=== PATIENT | male | born 1940 | race Caucasian/White ===

== ENCOUNTER 2017-01-10 06:59 | Day surgery (SDC) | payer MEDICARE, OTHER ==
[~2017-01-10] VITALS: Ht 165.1 cm; Wt 95.5 kg
[~2017-01-10 06:59] MED LIST: ALLO100T PO; ASPI-891 PO; BENZ200C2 PO; CARB200T6 PO; CEFT1PIG IV; FENO160T16 PO; FINA1 PO; HYDR25TA PO; METF10002 PO; METO25 PO; OLME40 PO; OMEP40CA PO; SODIUM CHLORIDE 0.9% 1,000 ML IV ONE; SODIUM CHLORIDE 0.9% 1,000 ML IV SCH; TERA2 PO; VARD10TA20 PO; ZOLP5 PO
[2017-01-10] MEDS ORDERED: DiphenhydrAMINE HCL 50 MG/ML VIAL IVP PRN (07:00)
[2017-01-10] MEDS ORDERED: ASPI81TA42 PO (07:42)
[2017-01-10] MEDS ORDERED: ASPI-1182 PO (07:42)
[2017-01-10] MEDS ORDERED: CLON-465 PO (07:48)
[2017-01-10] MEDS ORDERED: CARB100C4 PO (07:48)
[2017-01-10] MEDS ORDERED: FENO135C4 PO (07:50)
[2017-01-10] MEDS ORDERED: METF500T4 PO (07:51)
[2017-01-10] MEDS ORDERED: METO50 PO (07:52)
[2017-01-10 07:55] LABS: BASOPHILS # (AUTO) 0.04 K/uL (0.00-0.20); BASOPHILS % (AUTO) 0.6 % (0.0-2.0); EOSINOPHILS # (AUTO) 0.15 K/uL (0.00-0.70); EOSINOPHILS % (AUTO) 2.12 % (1.0-6.0); HEMATOCRIT 48.5 % (41-53); LYMPHOCYTES # (AUTO) 1.3 K/uL (1.0-4.8); LYMPHOCYTES % (AUTO) 17.2 % (22.0-44.0); MEAN CORPUSCULAR HEMOGLOBIN 29.9 pg (26.0-34.0); MEAN CORPUSCULAR VOLUME 91 fL (80-100); MONOCYTES # (AUTO) 0.7 K/uL (0.1-1.0); MONOCYTES % (AUTO) 9.9 % (2.0-9.0); NEUTROPHILS # (AUTO) 5.1 K/uL (1.8-7.7); NEUTROPHILS % (AUTO) 70.2 % (40.0-70.0); PLATELET COUNT (AUTO) 165 K/uL (150-450); RED BLOOD CELL COUNT(AUTO) 5.34 MIL/uL (4.50-5.90); RED CELL DISTRIBUTION WIDTH 14.8 % (11.5-14.5); WHITE BLOOD COUNT (AUTO) 7.3 K/uL (4.5-11.0)
[2017-01-10] MEDS ORDERED: CARB100T52 PO ×2 (07:57)
[2017-01-10] MEDS ORDERED: NIFE90TA45 PO (08:00)
[2017-01-10] MEDS ORDERED: VALS160T2 PO (08:00)
[2017-01-10 08:07] LABS: PROTHROMBIN TIME 10.7 SEC (9.4-11.6)
[2017-01-10 08:08] LABS: CALCIUM, TOTAL 9.7 mg/dL (8.8-10.5); CREATININE 1.27 mg/dL (0.60-1.30); POTASSIUM 4.4 mmol/L (3.5-5.1)
[2017-01-10 08:14] LABS: ALBUMIN 3.8 g/dL (3.4-5.0); BILIRUBIN,TOTAL 0.5 mg/dL (0.1-1.0); TOTAL PROTEIN, SERUM 6.5 g/dL (6.4-8.2)
[2017-01-10] MEDS ORDERED: FentaNYL CITRATE-PF 100 MCG/2 ML VIAL ONE (08:51)
[2017-01-10] MEDS ORDERED: MIDAZOLAM HCL 2 MG/2 ML VIAL ONE (08:52)
[2017-01-10] MEDS ORDERED: DiphenhydrAMINE HCL 50 MG/ML VIAL ONE (08:52)
[2017-01-10] MEDS ORDERED: BENZOCAINE 20% 50 MCG/SPRAY 57 GM ONE (08:57)
[2017-01-10 09:14] VITALS: BP 174/94
[2017-01-10] MEDS ORDERED: BENZOCAINE 20% 50 MCG/SPRAY 57 GM TP ONE (09:41)
[2017-01-10] MEDS ORDERED: MIDAZOLAM HCL 2 MG/2 ML VIAL IVP ONE (09:42)
[2017-01-10] MEDS ORDERED: FentaNYL CITRATE-PF 100 MCG/2 ML VIAL IVP ONE ×2 (09:42→09:48)
[2017-01-10] MEDS ORDERED: HydrALAZINE HCL 20 MG/ML VIAL ONE (09:56)
[2017-01-10] MEDS ORDERED: HydrALAZINE HCL 20 MG/ML VIAL IVP ONE (10:00)
[2017-01-10 10:08] VITALS: BP 163/69
[2017-01-10] MEDS ORDERED: METOPROLOL TARTRATE 5 MG/5 ML VIAL IVP ONE (11:00)
[2017-01-10] MEDS ORDERED: METOPROLOL TARTRATE 5 MG/5 ML VIAL ONE ×2 (11:02→12:28)
[2017-01-10] MEDS ORDERED: IOVERSOL 350 MG/ML 150 ML VIAL ONE (11:17)
[2017-01-10] MEDS ORDERED: SODIUM CHLORIDE 0.9% 100 ML ONE (11:17)
[2017-01-10] MEDS ORDERED: NITROGLYCERIN 400 MCG/SUBLINGUAL SPRAY 4.9 GM BOTTLE SL ONE (12:30)
== END 2017-01-10 13:30 | disposition home or self-care (01) ==
LOC: CATHLAB 06:59
PROVIDERS: ATTEND Internal Medicine Interventional Cardiology
DX: I48.91 Unspecified atrial fibrillation (principal); I08.0 Rheumatic disorders of both mitral and aortic valves; I10 Essential (primary) hypertension; Z87.01 Personal history of pneumonia (recurrent); E11.9 Type 2 diabetes mellitus without complications; E78.00 Pure hypercholesterolemia, unspecified; Z98.890 Other specified postprocedural states
CPT/HCPCS: 36415; 71010; 75574; 80053; 85025; 85610; 85730; 93005; 93312; 93325; J0360; J1200; J2250; J3010; J3490; J7030; J7050; Q9967; 99152; 99153

== ENCOUNTER → 2018-09-03 | Outpatient (CLI) | payer MEDICARE, OTHER ==
[~2018-09-03] MED LIST changes: -ASPI-891 PO; +ASPI81TA40 PO; -BENZ200C2 PO; -CARB200T6 PO; +CARBXR100 PO; -CEFT1PIG IV; +CLON-465 PO; +FENO135C4 PO; -FENO160T16 PO; -FINA1 PO; -HYDR25TA PO; +METF-960 PO; -METF10002 PO; -METO25 PO; +METO50 PO; +NIFE90TA45 PO; -OLME40 PO; -OMEP40CA PO; -SODIUM CHLORIDE 0.9% 1,000 ML IV ONE; -SODIUM CHLORIDE 0.9% 1,000 ML IV SCH; -TERA2 PO; +VALS160T2 PO; -VARD10TA20 PO; -ZOLP5 PO
== END | disposition home or self-care (01) ==
LOC: RADPV 11:10
PROVIDERS: ATTEND Family Medicine
DX: R05 Cough (principal)